=== PATIENT | male | born 1985 | race Caucasian/White ===

== ENCOUNTER 2020-08-28 07:06 | Inpatient (IN) | payer OTHER ==
[~2020-08-28] VITALS: Ht 170.2 cm; Wt 70.3 kg
--- NOTE | 2020-08-28 07:10 | NUR ---
onel campbell 37 from [facility] for opiate overdose was given 2 rounds of narcan on scene. Breathing evenly and unlabored. connected to the monitor and pulse ox. [employer] at bedside, sitter for constant monitoring. Kept comfortable, will continue to monitor accordingly.
--- NOTE | 2020-08-28 07:11 | NUR ---
Dr. Sanchez at bedside for eval.
[2020-08-28 07:38] LABS: CARBON DIOXIDE 23 mmol/L (21-32); CHLORIDE 100 mmol/L (98-107); CREATININE 1.2 mg/dL (0.6-1.3); GLUCOSE 101 mg/dL (74-106); SODIUM SERUM 136 mmol/L (136-145); UREA NITROGEN, BLOOD 15 mg/dL (7-18)
[2020-08-28 07:44] LABS: ACETAMINOPHEN 0 ug/ml (10-30); ALANINE AMINOTRANSFERASE 24 U/L (12-78); ALBUMIN 3.3 g/dL (3.4-5.0); ALCOHOL, BLOOD < 3 mg/dL (0-0); ALKALINE PHOSPHATASE 127 U/L (46-116); ASPARTATE AMINOTRANSFERASE 23 U/L (15-37); BILIRUBIN,DIRECT 0.1 mg/dL (0.0-0.2); BILIRUBIN,TOTAL 0.3 mg/dL (0.2-1.0); CALCIUM, SERUM 8.4 mg/dL (8.5-10.1); TOTAL PROTEIN, SERUM 7.4 g/dL (6.4-8.2)
[2020-08-28 07:49] LABS: BASOPHILS % (AUTO) 0.4 % (0.0-2.0); EOSINOPHILS % (AUTO) 2.1 % (0.0-6.0); HEMATOCRIT 41 % (39-51); HEMOGLOBIN 13.5 g/dL (13.5-17.5); LYMPHOCYTES # (AUTO) 1.4 /CMM (0.8-4.8); MEAN CORPUSCULAR HGB CONC 33 g/dl (31.0-36.0); MEAN CORPUSCULAR VOLUME 89 fL (80-96); MONOCYTES # (AUTO) 0.3 /CMM (0.1-1.30); MONOCYTES % (AUTO) 6.8 % (2.0-12.0); NEUTROPHILS # (AUTO) 2.1 /CMM (1.8-8.9); NEUTROPHILS % (AUTO) 54.7 % (43.0-81.0); PLATELET COUNT (AUTO) 393 /CMM (150-450); RED BLOOD CELL COUNT(AUTO) 4.58 MIL/uL (4.5-6.0); WHITE BLOOD COUNT (AUTO) 3.8 K/uL (4.3-11.0)
--- NOTE | 2020-08-28 12:26 | NUR ---
SS Consult: SS Consult requested for drug OD. The pt. is a 35-year-old male. The pt. was BIBPD from [facility] after pt. OD on opiates per EMR. CODY attempted to meet with pt. bedside. Pt. is sleeping in bed and is not rousable to verbal cues. CODY spoke to PD Badge # [id number] who stated that the pt. 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 PD stated that they had been informed by that the pt. may be admitted medically. Noted. CODY discussed with nurse, Leif who stated pt. will possibly be admitted medically. CODY will follow up with pt. at a later time.
[2020-08-28] MEDS ORDERED: ASPIRIN 81 MG TAB.CHEW ONE (12:30)
[2020-08-28] MEDS ORDERED: ASPIRIN 81 MG TAB.CHEW PO ONE (12:30)
--- NOTE | 2020-08-28 15:58 | NUR ---
GOING TO 304.2
--- NOTE | 2020-08-28 16:05 | NUR ---
REPORT GIVEN TO QUIN ROMO. AWAITING TRANSFER TO FLOOR.
--- NOTE | 2020-08-28 16:49 | NUR ---
wheeled patient via gurney accompanied by RN and emt in no distress. RN at bedside to assume care.
--- NOTE | 2020-08-28 17:00 | NUR ---
RN OPENING NOTE PATIENT AWAKE IN BED. A/O X3 AND MALTESE SPEAKING. NO COMPLAINT OF PAIN OR NAUSEA. CURRENTLY ON RA WITH NO SOB OR RESPIRATORY DISTRESS PRESENT. ON MACHINE MAINTENANCE REPAIRER. SELF AMBULATORY WITH BATHROOM PRIVILEGES. SKIN IS INTACT. NO EDEMA PRESENT. HL PRESENT ON L AC 18G. SAFETY MEASURES IN PLACE. SIDE RAILS RAISED. BED LOWERED. CALL LIGHT WITHIN REACH. WILL CONTINUE TO MONITOR.
[2020-08-28] MEDS ORDERED: MAGNESIUM HYDROXIDE 30 ML UDC PO PRN (18:00)
[2020-08-28] MEDS ORDERED: MAG HYDROX/AL HYDROX/SIMETH 30 ML UDC PO PRN (18:00)
[2020-08-28] MEDS ORDERED: ZOLPIDEM TARTRATE 5 MG TABLET PO PRN (18:00)
[2020-08-28] MEDS ORDERED: ONDANSETRON HCL/PF 4 MG/2 ML VIAL IVP PRN (18:00)
[2020-08-28] MEDS ORDERED: Z GUARD REMEDY 2 OZ OINT TP PRN (18:00)
[2020-08-28] MEDS ORDERED: ACETAMINOPHEN 325 MG TABLET PO PRN (18:00)
--- NOTE | 2020-08-28 18:34 | NUR ---
RN OPENING NOTE PATIENT AWAKE IN BED. A/O X3 AND MONGOLIAN SPEAKING. NO COMPLAINT OF PAIN OR NAUSEA. CURRENTLY ON RA WITH NO SOB OR RESPIRATORY DISTRESS PRESENT. ON CAKE TESTER. SELF AMBULATORY WITH BATHROOM PRIVILEGES. SKIN IS INTACT. NO EDEMA PRESENT. HL PRESENT ON L AC 18G. SAFETY MEASURES IN PLACE. SIDE RAILS RAISED. BED LOWERED. CALL LIGHT WITHIN REACH. REPORT TO BE GIVEN TO NIGHT NURSE FOR CHELSY.
--- NOTE | 2020-08-28 19:30 | NUR ---
INSPECTION SUPERVISOR OPENING NOTE PATIENT RECEIVED IN BED WITH EYES CLOSED, EASILY AROUSED. PATIENT ALERT AND ORIENTED X 4. BREATHING EVEN AND UNLABORED. TELE MONITOR READS SR. NO COMPLAINS OF PAIN OR DISCOMFORT AT THIS TIME. SAFETY MEASURES IN PLACE: CALL LIGHT WITHIN REACH, BED IN LOCKED AND LOWEST POSITION, SIDE RAILS UP. WILL MONITOR PATIENT CLOSELY.
[2020-08-28 20:00] VITALS: BP 124/68
[2020-08-28] MEDS ORDERED: ENOXAPARIN SODIUM 40 MG/0.4 ML DISP.SYRIN SQ SCH (21:00)
[2020-08-29] VITALS: BP 124/71
[2020-08-29 04:00] VITALS: BP 122/88
[2020-08-29 06:20] LABS: BASOPHILS % (AUTO) 0.7 % (0.0-2.0); EOSINOPHILS % (AUTO) 2.5 % (0.0-6.0); HEMATOCRIT 37 % (39-51); HEMOGLOBIN 12.4 g/dL (13.5-17.5); LYMPHOCYTES # (AUTO) 1.7 /CMM (0.8-4.8); LYMPHOCYTES % (AUTO) 38.4 % (20.0-44.0); MEAN CORPUSCULAR HGB CONC 33 g/dl (31.0-36.0); MEAN CORPUSCULAR VOLUME 89 fL (80-96); MONOCYTES # (AUTO) 0.3 /CMM (0.1-1.30); MONOCYTES % (AUTO) 7.1 % (2.0-12.0); NEUTROPHILS # (AUTO) 2.3 /CMM (1.8-8.9); NEUTROPHILS % (AUTO) 51.3 % (43.0-81.0); PLATELET COUNT (AUTO) 324 /CMM (150-450); RED BLOOD CELL COUNT(AUTO) 4.21 MIL/uL (4.5-6.0); WHITE BLOOD COUNT (AUTO) 4.5 K/uL (4.3-11.0)
--- NOTE | 2020-08-29 06:40 | NUR ---
HAY BALER CLOSING NOTE PATIENT IN BED RESTING. BREATHING EVEN AND UNLABORED. TELE MONITOR READS SR 61. NO COMPLAINS OF PAIN OR DISCOMFORT AT THIS TIME. IV ACCESS STILL PATENT. SAFETY MEASURES MAINTAINED: CALL LIGHT WITHIN REACH, BED IN LOCKED AND LOWEST POSITION, SIDE RAILS UP. ALL NEEDS MET AND ATTENDED. ORDERS CARRIED OUT. WILL ENDORSE TO DAY SHIFT NURSE FOR CHELSY.
[2020-08-29 06:46] LABS: CALCIUM, SERUM 8.4 mg/dL (8.5-10.1); CREATININE 0.7 mg/dL (0.6-1.3); PHOSPHORUS 3.7 mg/dL (2.5-4.9)
--- NOTE | 2020-08-29 07:00 | NUR ---
CENTRAL STATION OPERATOR OPENING NOTES RECEIVED PT AWAKE IN BED AT THIS TIME. AOX4. ABLE TO COMMUNICATE NEEDS. NO SOB NOTED, NO S/O ANY ACUTE DISTRESS NOTED, NO C/O OF PAIN AT THIS TIME. PT STABLE ON RA. RESPIRATIONS EVEN AND UNLABORED. PT ON EXTERNAL CARDIAC TELE MONITOR READING SR IN THE 60s. IV ACCESS IN LAC G#18, INTACT, PATENT AND FLUSHING WELL. SAFETY PRECAUTIONS IN PLACE AND MAINTAINED AT ALL TIMES. BED IN LOWEST LOCKED POSITION, HOB ELEVATED, SIDE RAILS UP X 2. CALL LIGHT AND TABLE WITHIN REACH. WILL CONTINUE TO MONITOR
[2020-08-29 07:26] LABS: THYROID STIMULATING HORMONE 1.038 uIU/mL (0.358-3.74)
[2020-08-29 08:00] VITALS: BP 128/86
[2020-08-29] MEDS ORDERED: NICOTINE PATCH (14MG) 14 MG PATCH.TD24 TD SCH (09:00)
[2020-08-29] MEDS ORDERED: ASPIRIN EC 81 MG TABLET.DR PO SCH (09:00)
--- NOTE | 2020-08-29 12:55 | NUR ---
RECEIVED DISCHARGE ORDERS TO DISCHARGE PATIENT. PER PATIENT, HE IS HOMELESS. SOCIAL SERVICE CONSULT TRIGGERED TO PROVIDE PATIENT WITH RESOURCES AND INFORMATION. WHILE PREPPING DISCHARGE PAPERS DIA APPRENTICE PATTERN MAKER NOTIFIED NURSE OF PATIENT ELOPEMENT THROUGH [employer]. SECURITY WAS CALLED IN BUT PATIENT WAS NOT FOUND. PT LEFT HOSPITAL WITH HOSPITAL ID BAND AND IV ACCESS STILL IN PLACE. [facility] SOCIAL SERVICE CAME TO MED-SURG UNIT TO PROVIDE PATIENT WITH RESOURCES AND WAS INFORMED PT HAD LEFT/ELOPED FROM HOSPITAL. NANCYD OF [facility] WAS NOTIFIED ABOUT INCIDENT AND PATIENT HAVING PIV ACCESS. SPOKE TO CLARK PEREZ # [id number] OF [facility]. IFEANYI, CHARGE NURSE, NII, NEWSPAPER INSERTER AND DR NARAYAN, AWARE.
--- NOTE | 2020-08-29 12:57 | NUR ---
Medical Administrative Specialist note: Medical Administrative Specialist requested for consult for homelessness. SW attempted to meet with the patient on the med-surg unit but upon arrival, RN Immaculate reported that the patient has left AMA. No further SS intervention at this time, however SW will remain available as needed.
== END 2020-08-29 12:55 | disposition left against medical advice (07) | DRG 917 ==
LOC: ER 07:09 → TELE 17:12 → MED 08-29 10:28
PROVIDERS: ADMIT Student in an Organized Health Care Education/Training Program; ATTEND Student in an Organized Health Care Education/Training Program
DX: T40.601A Poisoning by unspecified narcotics, accidental (unintentional), initial encounter (principal); I21.A1 Myocardial infarction type 2; E44.1 Mild protein-calorie malnutrition; Y92.89 Other specified places as the place of occurrence of the external cause; D70.9 Neutropenia, unspecified; Z72.0 Tobacco use; Z20.822 Contact with and (suspected) exposure to COVID-19
CPT/HCPCS: 36415; 71045-TC; 74018; 80048-TC; 80061-TC; 80076-TC; 83735-TC; 84100-TC; 84443-TC; 84484-TC; 85025-TC; 87081-TC; 93307-TC; C9803; G0378; G0480; J1650

== ENCOUNTER 2022-05-15 22:51 | Emergency (ER) | payer MEDICAID, OTHER ==
[~2022-05-15] VITALS: Ht 170.2 cm; Wt 64.9 kg
--- NOTE | 2022-05-15 23:06 | NUR ---
[facility] FOR [facility] REQUESTING COVID TEST.
--- NOTE | 2022-05-15 23:10 | NUR ---
SWAB FOR COVID19 SENT TO LAB
--- NOTE | 2022-05-15 23:55 | NUR ---
Patient discharged to home in stable condition. Written and verbal after care instructions given. Patient verbalizes understanding of instruction.
[2022-05-15 23:56] VITALS: BP 146/82
== END 2022-05-15 23:56 ==
LOC: ER 22:58
DX: Z02.89 Encounter for other administrative examinations (principal); Z20.822 Contact with and (suspected) exposure to COVID-19
CPT/HCPCS: 99283; 87426; C9803

== ENCOUNTER 2023-02-09 04:16 | Emergency (ER) | payer MEDICAID ==
[~2023-02-09] VITALS: Ht 160 cm; Wt 72.6 kg
[2023-02-09 04:27] VITALS: BP 123/87; TEMP 98
[2023-02-09] MEDS ORDERED: SILV20CR13 TP (06:29)
[2023-02-09] MEDS ORDERED: SILVER SULFADIAZINE CREAM 25 GM TUBE ONE (06:36)
[2023-02-09] MEDS: SILVER SULFADIAZINE CREAM 25 GM TUBE TP ONE (06:46)
[2023-02-09 09:29] LABS: SITE, VBG Other; VBG COHb 0.3 %; VBG MetHb 0.4 %; VBG O2Hb 60.9 %; VBG OXYGEN SATURATION 61.3 %; VBG PCO2 54.6 mmHg (40-52); VBG PO2 32.1 mmHg (30-50); VENT MODE, VBG ROOM AIR
[2023-02-09 10:09] VITALS: O2SAT 98
== END 2023-02-09 10:09 | disposition home or self-care (01) ==
LOC: ER 04:19
DX: T23.222A Burn of second degree of single left finger (nail) except thumb, initial encounter (principal); T20.16XA Burn of first degree of forehead and cheek, initial encounter; T59.811A Toxic effect of smoke, accidental (unintentional), initial encounter; R06.02 Shortness of breath; Z60.2 Problems related to living alone; X08.8XXA Exposure to other specified smoke, fire and flames, initial encounter; Y93.89 Activity, other specified; Y92.89 Other specified places as the place of occurrence of the external cause; Y99.8 Other external cause status
CPT/HCPCS: 71045-TC; 82803-TC; A6403